=== PATIENT | female | born 1975 | race Two or more races ===

== ENCOUNTER 2016-12-07 12:42 | Emergency (ER) | payer OTHER ==
[~2016-12-07] VITALS: Ht 152.4 cm; Wt 61.6 kg
[2016-12-07 12:52] VITALS: BP 111/66
== END 2016-12-07 15:02 | disposition home or self-care (01) ==
LOC: ED 14:56
DX: S16.1XXA Strain of muscle, fascia and tendon at neck level, initial encounter (principal); M25.562 Pain in left knee; V49.49XA Driver injured in collision with other motor vehicles in traffic accident, initial encounter; Y93.I9 Activity, other involving external motion; Y92.488 Other paved roadways as the place of occurrence of the external cause; Y99.8 Other external cause status
CPT/HCPCS: 72020; 72050; 99284